=== PATIENT | female | born 1995 | race Caucasian/White ===

== ENCOUNTER 2016-10-09 17:26 | Emergency (ER) | payer OTHER ==
[~2016-10-09] VITALS: Ht 177.8 cm; Wt 105.0 kg
[~2016-10-09 17:26] MED LIST: ACET-1311 PO
[2016-10-09 17:28] VITALS: TEMP 36.7; Ht 177.8 cm; Wt 105.0 kg
--- NOTE | 2016-10-09 17:42 | EMERGENCY ROOM VISIT NOTE ---
History Report prepared by Daniela: Emelia Centeno Under the Supervision of: Dr. Alfredito Lawrence M.D. First contact with patient: 17:31 Chief Complaint: ABDOMINAL PAIN Stated Complaint: RIGHT SIDE PAIN - NAUSEA Nursing Triage Summary: pt here with right sided abd pains x 3 years, some nausea. History of Present Illness The patient is a 21 year old female who presents to the Emergency Room with complaints of persistent right upper quadrant abdominal pain that began two years ago, but worsened over the last few months. She currently rates her discomfort as a 10/10 in severity. The patient states that she has been evaluated by several doctors for her abdominal pain, but denies any diagnosis. The patient denies any past surgical history and denies any work up related to her gallbladder. She notes worsened pain with eating. The patient associates nausea with her symptoms and additionally notes that she vomited yesterday. She denies any shortness of breath, vaginal discharge, urinary symptoms, or chance of . The patient reports normal bowel movements. She states that she is currently on her menstrual cycle. The patient reports a recent fever and diaphoresis. Source of History: patient Onset: two years ago, worsened last few months Position: abdomen (RUQ) Symptom Intensity: 10/10 Timing: worsening, other (persistent) Associated Symptoms: + fevers, + nausea, + vomiting, No SOB, No urinary symptoms Review of Systems See HPI for pertinent positives & negatives. A total of 10 systems reviewed and were otherwise negative. Past Medical & Surgical Medical Problems: (1) Bronchitis Family History Cancer Hypertension Seizures Social History Smoking Status: Never Smoker Smokeless Tobacco Use: No Alcohol Use: none Marital Status: single Housing Status: lives with family Occupation Status: student Current/Historical Medications Scheduled Cephalexin Monohydrate (Keflex), 500 MG PO TID Metformin Hcl (Glucophage), 500 MG PO DAILY Pantoprazole (Protonix), 20 MG PO DAILY Allergies Coded Allergies: Erythromycin (Unverified Allergy, Severe, HIVES, 10/09/16) Uncoded Allergies: E-MYCIN (Allergy, Unknown, 10/23/02) Physical Exam Vital Signs Date Time Temp Pulse Resp B/P (MAP) Pulse Ox O2 Delivery O2 Flow Rate FiO2 10/09/16 19:51 71 18 136/50 99 Room Air 10/09/16 18:42 78 18 136/50 99 Room Air 10/09/16 17:28 36.7 92 16 136/83 99 Room Air Physical Exam GENERAL: Patient is in no acute distress. HEENT: No acute trauma, normocephalic atraumatic, mucous membranes moist, no nasal congestion, no scleral icterus. NECK: No stridor, no adenopathy, no meningismus, trachea is midline. LUNGS: Clear to auscultation bilaterally, no wheeze, no rhonchi, breath sounds equal. HEART: Without murmurs gallops or rubs, regular rate and rhythm. ABDOMEN: Mildly tender in right upper quadrant. Soft, bowel sounds positive, no hernias, no peritonitis. EXTREMITIES: No cyanosis or edema, full range of motion of all the joints without pain or difficulty, no signs for acute trauma. NEUROLOGIC: Oriented x 3, no acute motor or sensory deficits, no focal weakness. SKIN: No rash, no jaundice, no diaphoresis. Medical Decision & Procedures ER Provider Diagnostic Interpretation: Radiology results as stated below per my review and radiologist interpretation: CHEST ONE VIEW PORTABLE CLINICAL HISTORY: Right-sided pain. Abdominal pain. Nausea. COMPARISON STUDY: No previous studies for comparison. FINDINGS: The cardiac and mediastinal contours are normal. There is no evidence of focal pulmonary consolidation. There is no evidence of failure. No pleural effusions are visualized.[ IMPRESSION: No active disease in the chest. Electronically signed by: Roland Barron M.D. 10/09/2016 5:59 PM Dictated Date/Time: 10/09/2016 5:59 PM BILIARY ULTRASOUND CLINICAL HISTORY: Right upper quadrant abdominal pain COMPARISON STUDY: No previous studies for comparison. FINDINGS: The study is limited from a technical standpoint. The liver is of slightly increased echogenicity, finding suggesting hepatic steatosis. No focal hepatic masses are visualized. The gallbladder appears sonographically normal. There is no ductal dilatation. The common bile duct measures 4 mm. The pancreas appears normal as visualized. There is no right-sided hydronephrosis. IMPRESSION: Possible hepatic steatosis. Ultrasonographically normal gallbladder. No evidence of ductal dilatation. Electronically signed by: Roland Barron M.D. 10/09/2016 7:04 PM Dictated Date/Time: 10/09/2016 7:03 PM Laboratory Results 10/09/16 17:45 Red Blood Count 5.09, Mean Corpuscular Volume 74.9, Mean Corpuscular Hemoglobin 23.6, Mean Corpuscular Hemoglobin Concent 31.5, Mean Platelet Volume 10.3, Neutrophils (%) (Auto) 77.8, Lymphocytes (%) (Auto) 14.2, Monocytes (%) (Auto) 5.8, Eosinophils (%) (Auto) 1.6, Basophils (%) (Auto) 0.4, Neutrophils # (Auto) 8.88, Lymphocytes # (Auto) 1.62, Monocytes # (Auto) 0.66, Eosinophils # (Auto) 0.18, Basophils # (Auto) 0.04 10/09/16 17:45 Test 10/09/16 17:45 10/09/16 18:00 White Blood Count 11.40 K/uL (4.8-10.8) Red Blood Count 5.09 M/uL (4.2-5.4) Hemoglobin 12.0 g/dL (12.0-16.0) Hematocrit 38.1 % (37-47) Mean Corpuscular Volume 74.9 fL (80-100) Mean Corpuscular Hemoglobin 23.6 pg (25-34) Mean Corpuscular Hemoglobin Concent 31.5 g/dl (32-36) Platelet Count 374 K/uL (130-400) Mean Platelet Volume 10.3 fL (7.4-10.4) Neutrophils (%) (Auto) 77.8 % Lymphocytes (%) (Auto) 14.2 % Monocytes (%) (Auto) 5.8 % Eosinophils (%) (Auto) 1.6 % Basophils (%) (Auto) 0.4 % Neutrophils # (Auto) 8.88 K/uL (1.4-6.5) Lymphocytes # (Auto) 1.62 K/uL (1.2-3.4) Monocytes # (Auto) 0.66 K/uL (0.11-0.59) Eosinophils # (Auto) 0.18 K/uL (0-0.5) Basophils # (Auto) 0.04 K/uL (0-0.2) RDW Standard Deviation 40.9 fL (36.4-46.3) RDW Coefficient of Variation 15.0 % (11.5-14.5) Immature Granulocyte % (Auto) 0.2 % Immature Granulocyte # (Auto) 0.02 K/uL (0.00-0.02) Red Blood Cell Morphology Unremarkable Anion Gap 7.0 mmol/L (3-11) Est Creatinine Clear Calc Drug Dose 188.2 ml/min Estimated GFR () 148.1 Estimated GFR (Non- 127.8 BUN/Creatinine Ratio 9.8 (10-20) Calcium Level 9.3 mg/dl (8.5-10.1) Total Bilirubin 0.3 mg/dl (0.2-1) Aspartate Amino Transf (AST/SGOT) 17 U/L (15-37) Alanine Aminotransferase (ALT/SGPT) 28 U/L (12-78) Alkaline Phosphatase 82 U/L (45-117) Total Protein 7.6 gm/dl (6.4-8.2) Albumin 3.6 gm/dl (3.4-5.0) Globulin 4.0 gm/dl (2.5-4.0) Albumin/Globulin Ratio 0.9 (0.9-2) Lipase 95 U/L (73-393) Urine Color ORANGE Urine Appearance CLOUDY (CLEAR) Urine pH 6.5 (4.5-7.5) Urine Specific Sherwood 1.023 (1.000-1.030) Urine Protein 1+ (NEG) Urine Glucose (UA) NEG (NEG) Urine Ketones NEG (NEG) Urine Occult Blood 3+ (NEG) Urine Nitrite NEG (NEG) Urine Bilirubin NEG (NEG) Urine Urobilinogen NEG (NEG) Urine Leukocyte Esterase MODERATE (NEG) Urine WBC (Auto) >30 /hpf (0-5) Urine RBC (Auto) >30 /hpf (0-4) Urine Hyaline Casts (Auto) 10-30 /lpf (0-5) Urine Epithelial Cells (Auto) >30 /lpf (0-5) Urine Bacteria (Auto) 1+ (NEG) Urine Test NEG (NEG) Laboratory results reviewed by me. Medications Administered Medications (Trade) Dose Ordered Sig/Ricco Route Start Time Stop Time Status Last Admin Dose Admin Cephalexin Monohydrate (Keflex 500MG Home Pack) 1 homepack NOW ONCE PO 10/09/16 19:15 10/09/16 19:16 DC 10/09/16 20:16 1 HOMEPACK Pantoprazole Sodium (Protonix Tab) 40 mg NOW STAT PO 10/09/16 19:17 10/09/16 19:18 DC 10/09/16 19:51 40 MG ED Course 1731: The patient was evaluated in room C8. A complete history and physical exam was performed. 1914: Ordered Cephalexin Monohydrate 1 homepack PO. 1916: Ordered Protonix 40 mg PO. 1921: I reevaluated the patient and she is resting comfortably. I discussed the exam findings with her and I discussed the treatment plan. She verbalized complete understanding and agreement. She is ready to go home. Medical Decision The patient is a 21 year old female who presents to the ED with complaints of right upper quadrant abdominal pain. Differential diagnoses considered include biliary colic, pancreatitis, pneumonia, reflux, ulcer, musculoskeletal pain, UTI , . There is a very mild leukocytosis, this could be consistent with infection. No concerning anemia. No significant electrolyte abnormality, kidney failure, hepatitis or pancreatitis. Urine testing is negative. Gallbladder ultrasound does not show evidence for gallstones or acute cholecystitis. Chest x-ray shows no free air or pneumonia, there was no mediastinal widening. Urinalysis shows possible infection versus contamination, urine culture is pending. Given the discomfort in the right side of the abdomen, given the leukocytosis and the potential dirty urine, I think treating the patient with antibiotics would be indicated. She was given oral Keflex. This will be continued for 10 days. The patient also was given oral Protonix for the possibility of gastritis. This will be continued for 1 month. If worsening, she can return. Medication Reconciliation: I attest that I have personally reviewed the patient' s current medication list. Blood Pressure Screening: Patient was found to have normal blood pressure on screening and does not require follow-up. Impression Primary Impression: Right sided abdominal pain Additional Impression: UTI (urinary tract infection) Scribe Attestation The scribe's documentation has been prepared under my direction and personally reviewed by me in its entirety. I confirm that the note above accurately reflects all work, treatment, procedures, and medical decision making performed by me. Departure Information Dispostion Home / Self-Care Prescriptions Cephalexin Monohydrate (Keflex) 500 Mg Cap 500 MG PO TID for 10 Days, #30 CAP Prov: Alfredito Lawrence M.D. 10/09/16 Pantoprazole (Protonix) 20 Mg Tab 20 MG PO DAILY, #30 TAB Prov: Alfredito Lawrence M.D. 10/09/16 Referrals No Doctor, Assigned (PCP) Forms HOME CARE DOCUMENTATION FORM, IMPORTANT VISIT INFORMATION Patient Instructions My [facility] Additional Instructions protonix daily for 1 month for the stomach use keflex 3 times per day for 10 days follow with yudi ulloa for a recheck return for fever, vomiting or worsening symptoms lab testing and imaging was ok today Problem Qualifiers
[2016-10-09] MEDS ORDERED: GLC/500 PO (17:53)
[2016-10-09 17:54] LABS: BASO % 0.4 %; BASO ABS # 0.04 K/uL (0-0.2); EOS % 1.6 %; HEMATOCRIT 38.1 % (37-47); IG% 0.2 %; LYMPH % 14.2 %; LYMPH ABS # 1.62 K/uL (1.2-3.4); MEAN CELL VOLUME 74.9 fL (80-100); MEAN CORPUSCULAR HEMOGLOBIN 23.6 pg (25-34); MEAN CORPUSCULAR HGB CONC 31.5 g/dl (32-36); MEAN PLATELET VOLUME 10.3 fL (7.4-10.4); MONO % 5.8 %; NEUT % 77.8 %; PLATELET COUNT 374 K/uL (130-400); RED BLOOD COUNT 5.09 M/uL (4.2-5.4)
--- NOTE | 2016-10-09 18:00 | DIAGNOSTIC IMAGING REPORT ---
CHEST ONE VIEW PORTABLE CLINICAL HISTORY: Right-sided pain. Abdominal pain. Nausea. COMPARISON STUDY: No previous studies for comparison. FINDINGS: The cardiac and mediastinal contours are normal. There is no evidence of focal pulmonary consolidation. There is no evidence of failure. No pleural effusions are visualized.[ IMPRESSION: No active disease in the chest. Electronically signed by: Roland Barron M.D. 10/09/2016 5:59 PM Dictated Date/Time: 10/09/2016 5:59 PM
[2016-10-09 18:15] LABS: BUN/CREATININE RATIO 9.8 (10-20); CALCIUM 9.3 mg/dl (8.5-10.1); CREATININE 0.61 mg/dl (0.60-1.20); POTASSIUM 3.7 mmol/L (3.5-5.1)
[2016-10-09 18:17] LABS: COMPLETE YES
[2016-10-09 18:18] LABS: ALB/GLOB RATIO 0.9 (0.9-2)
[2016-10-09 18:25] LABS: URINE APPEARANCE CLOUDY (CLEAR); URINE BILIRUBIN NEG (NEG); URINE COLOR ORANGE; URINE EPITHELIAL CELL AUTO >30 /lpf (0-5); URINE NITRITE NEG (NEG); URINE PH 6.5 (4.5-7.5); URINE SPECIFIC GRAVITY 1.023 (1.000-1.030); UROBILINOGEN NEG (NEG); ZZUR CULT IF INDIC CLEAN CATCH YES
[2016-10-09 18:26] LABS: MANUAL MICROSCOPIC REQUIRED? NO; REVIEW REQ? NO
--- NOTE | 2016-10-09 19:05 | DIAGNOSTIC IMAGING REPORT ---
BILIARY ULTRASOUND CLINICAL HISTORY: Right upper quadrant abdominal pain COMPARISON STUDY: No previous studies for comparison. FINDINGS: The study is limited from a technical standpoint. The liver is of slightly increased echogenicity, finding suggesting hepatic steatosis. No focal hepatic masses are visualized. The gallbladder appears sonographically normal. There is no ductal dilatation. The common bile duct measures 4 mm. The pancreas appears normal as visualized. There is no right-sided hydronephrosis. IMPRESSION: Possible hepatic steatosis. Ultrasonographically normal gallbladder. No evidence of ductal dilatation. Electronically signed by: Roland Barron M.D. 10/09/2016 7:04 PM Dictated Date/Time: 10/09/2016 7:03 PM
[2016-10-09] MEDS ORDERED: CEPHALEXIN 500MG HOME PACK 1 EA BTL PO ONE (19:15)
[2016-10-09] MEDS ORDERED: PANTOprazole SOD 40 MG TAB PO STA (19:17)
[2016-10-09 19:51] VITALS: BP 136/50; PULSE 71; O2SAT 99
[2016-10-09] MEDS ORDERED: PRT/20 PO (19:54)
[2016-10-09] MEDS ORDERED: CEPH500C PO (19:54)
== END 2016-10-09 20:19 | disposition home or self-care (01) ==
LOC: C.EDB 17:27 → C.EDC 20:19
DX: R10.11 Right upper quadrant pain (principal); N39.0 Urinary tract infection, site not specified; Z80.9 Family history of malignant neoplasm, unspecified; Z82.49 Family history of ischemic heart disease and other diseases of the circulatory system; Z79.899 Other long term (current) drug therapy

== ENCOUNTER 2017-04-02 15:09 | Emergency (ER) | payer OTHER ==
[~2017-04-02] VITALS: Ht 177.8 cm; Wt 105.1 kg
[~2017-04-02 15:09] MED LIST changes: -ACET-1311 PO; +GLC/500 PO; +PRT/20 PO
[2017-04-02 15:30] VITALS: TEMP 36.7; Ht 177.8 cm; Wt 105.1 kg
--- NOTE | 2017-04-02 16:16 | EMERGENCY ROOM VISIT NOTE ---
History Report prepared by Daniela: Imtiaz Nazario Under the Supervision of: Dr. Scooter Monroy M.D. First contact with patient: 15:37 Chief Complaint: ANXIETY Stated Complaint: DIZZINESS, NAUSEA, BREATHING TROUBLE, ANXIETY History of Present Illness The patient is a 22 year old female who presents to the Emergency Room for a mental health evaluation for her worsening anxiety starting yesterday. The patient states that she has a history of depression and anxiety, and she states that during her panic attacks she gets short of breath, and she currently feels short of breath and dizzy since yesterday. She additionally states that she has been having suicidal ideations yesterday by stabbing herself, though she does not have those thoughts today. She states that she listened to music yesterday which helped her ideations. The patient was put on Ativan last night, though she was recently taken off of it. She notes that she sometimes cries, and she is not sleeping very well. The patient denies any weigh loss, weight gain, alcohol use, drug use, thyroid problems, leg pain, leg swelling, abdominal pain , homicidal ideation, and hallucinations. The patient states that she has not seen a psychiatrist yet, and she has a seizures years ago. Source of History: patient Onset: yesterday Position: other (global) Quality: other (anxiety) Timing: worsening Note: Associated symptoms: Suicidal ideation Review of Systems See HPI for pertinent positives & negatives. A total of 10 systems reviewed and were otherwise negative. Past Medical & Surgical Medical Problems: (1) Bronchitis Old medical records were reviewed. Nurse's notes were reviewed and I agree with. Family History Cancer Hypertension Seizures Social History Smoking Status: Never Smoker Alcohol Use: none Marital Status: single Housing Status: lives with family Occupation Status: student Current/Historical Medications No Active Prescriptions or Reported Meds Allergies Coded Allergies: Erythromycin (Unverified Allergy, Severe, HIVES, 10/09/16) Penicillins (Verified Allergy, Intermediate, Hives, 04/02/17) Physical Exam Vital Signs Date Time Temp Pulse Resp B/P (MAP) Pulse Ox O2 Delivery O2 Flow Rate FiO2 04/02/17 17:22 86 17 129/75 99 Room Air 04/02/17 15:30 36.7 87 20 142/84 100 Room Air Physical Exam General: Non-ill appearing young female in no acute distress. HEENT: Normal cephalic atraumatic. Pupils are equal round and reactive to light. Extraocular movements are intact. Oropharynx is pink with moist mucous membranes. No swelling of the mouth lips or tongue. Neck: Supple with a midline trachea. No meningeal signs or stiffness, no JVD or bruits. No Stridor. Chest: Clear to auscultation bilaterally. No wheezes or rhonchi. No increased work of breathing. Heart: regular rate and rhythm. Abdomen: Soft nontender, nondistended without rebound guarding or rigidity. Extremities: No cyanosis clubbing or edema. No calf tenderness or assymetry Spine/Back. Non tender to palpation. No CVA tenderness Skin: Good turgor without rashes. Neurologic exam: Cranial nerves two through 12 are intact. Motor and sensation are intact and symmetrical throughout. Psych: Denies any current suicidal ideation. She complains of feeling anxious. Medical Decision & Procedures ER Provider Diagnostic Interpretation: Radiology results as stated below per my review and radiologist interpretation: CHEST ONE VIEW PORTABLE CLINICAL HISTORY: CHEST PAIN dyspnea COMPARISON STUDY: 10/09/2016 FINDINGS: The bones soft tissues and hemidiaphragms are normal. The cardiomediastinal silhouette is normal. The lungs are clear. The pulmonary vasculature is normal. IMPRESSION: Negative chest. The above report was generated using voice recognition software. It may contain grammatical, syntax or spelling errors. Electronically signed by: Sohan Watts M.D. 04/02/2017 4:14 PM Dictated Date/Time: 04/02/2017 4:13 PM Laboratory Results 04/02/17 16:13 Red Blood Count 4.79, Mean Corpuscular Volume 74.1, Mean Corpuscular Hemoglobin 23.4, Mean Corpuscular Hemoglobin Concent 31.5, Mean Platelet Volume 10.5, Neutrophils (%) (Auto) 64.2, Lymphocytes (%) (Auto) 24.0, Monocytes (%) (Auto) 8.7, Eosinophils (%) (Auto) 2.5, Basophils (%) (Auto) 0.4, Neutrophils # (Auto) 6.30, Lymphocytes # (Auto) 2.36, Monocytes # (Auto) 0.85, Eosinophils # (Auto) 0.25, Basophils # (Auto) 0.04 04/02/17 16:13 Test 04/02/17 15:35 04/02/17 16:13 Urine Opiates Screen NEG (NEG) Urine Methadone, Qualitative NEG (NEG) Urine Barbiturates NEG (NEG) Urine Phencyclidine (PCP) Level NEG (NEG) Ur Amphetamine/Methamphetamine NEG (NEG) MDMA (Ecstasy) Screen NEG (NEG) Urine Benzodiazepines Screen NEG (NEG) Urine Cocaine Metabolite NEG (NEG) Urine Marijuana (THC) NEG (NEG) White Blood Count 9.82 K/uL (4.8-10.8) Red Blood Count 4.79 M/uL (4.2-5.4) Hemoglobin 11.2 g/dL (12.0-16.0) Hematocrit 35.5 % (37-47) Mean Corpuscular Volume 74.1 fL (80-100) Mean Corpuscular Hemoglobin 23.4 pg (25-34) Mean Corpuscular Hemoglobin Concent 31.5 g/dl (32-36) Platelet Count 357 K/uL (130-400) Mean Platelet Volume 10.5 fL (7.4-10.4) Neutrophils (%) (Auto) 64.2 % Lymphocytes (%) (Auto) 24.0 % Monocytes (%) (Auto) 8.7 % Eosinophils (%) (Auto) 2.5 % Basophils (%) (Auto) 0.4 % Neutrophils # (Auto) 6.30 K/uL (1.4-6.5) Lymphocytes # (Auto) 2.36 K/uL (1.2-3.4) Monocytes # (Auto) 0.85 K/uL (0.11-0.59) Eosinophils # (Auto) 0.25 K/uL (0-0.5) Basophils # (Auto) 0.04 K/uL (0-0.2) RDW Standard Deviation 41.5 fL (36.4-46.3) RDW Coefficient of Variation 15.5 % (11.5-14.5) Immature Granulocyte % (Auto) 0.2 % Immature Granulocyte # (Auto) 0.02 K/uL (0.00-0.02) Anion Gap 9.0 mmol/L (3-11) Est Creatinine Clear Calc Drug Dose 183.6 ml/min Estimated GFR () 146.3 Estimated GFR (Non- 126.2 BUN/Creatinine Ratio 10.3 (10-20) Calcium Level 9.3 mg/dl (8.5-10.1) Total Bilirubin 0.2 mg/dl (0.2-1) Direct Bilirubin < 0.1 mg/dl (0-0.2) Aspartate Amino Transf (AST/SGOT) 19 U/L (15-37) Alanine Aminotransferase (ALT/SGPT) 29 U/L (12-78) Alkaline Phosphatase 79 U/L (45-117) Total Protein 7.5 gm/dl (6.4-8.2) Albumin 3.6 gm/dl (3.4-5.0) Lipase 92 U/L (73-393) Thyroid Stimulating Hormone (TSH) 2.540 uIu/ml (0.300-4.500) Human Chorionic Gonadotropin, Qual NEG (NEG) Salicylates Level < 1.7 mg/dl (2.8-20) Acetaminophen Level < 2 ug/ml (10-30) Ethyl Alcohol mg/dL < 3.0 mg/dl (0-3) Laboratory studies as stated above per my review. ECG Indication: SOB/dyspnea Rate (beats per minute): 74 Rhythm: normal sinus Findings: no acute ischemic change, other (Shortened VT interval) Comparison ECG Date: no prior available ED Course 1537: Past medical records reviewed. The patient was evaluated in room A8, and a complete history and physical examination were performed. 1716: I reevaluated the patient, and she was resting comfortably 1752: Upon reevaluation, the patient is doing well. I discussed the results and treatment plan with her. She verbalized agreement of the treatment plan. The patient was discharged home. Medical Decision Differentials include, but are not limited to; anxiety, depression, toxicologic process, electrolyte or metabolic abnormality. This patient comes in as described above. She was placed in room A5. She is here for treatment and evaluation of anxiety. She may have had some suicidal ideations yesterday. Denies any at present. She looks well on exam and she says that when she gets anxious she does feel short of breath. In light of this , a chest x-ray was obtained which was unremarkable. Multiple blood tests was obtained as well as an EKG. She has nothing to suggest acute electrolyte or metabolic abnormalities. She has nothing to suggest acute cardiac toxicologic or infectious process. She was medically cleared. At present, she is asymptomatic and they feel she is safe to go home and we are going to arrange her to get in with a primary care physician in the next couple days for possible anxiety medicine. The patient and her grandmother, who she lives with , are very agreeable and with this. Incidentally on her EKG, her VT interval is short and it's possible she could have some preexcitation and this could be another reason to get her to get close follow-up with her regular doctor. It's possible that she could have a pre-excitatory syndrome such as WPW that's causing her to feel anxious. She's had no syncope or chest pain or palpitations. I informed her of these findings as well. She should return to the ER if: worsening of symptoms, thoughts of hurting herself or others, passing out, rapid heart rate, any new problems or concerns. The patient and her grandmother were happy with the plan and she was discharged to home. Medication Reconcilliation Current Medication List: was personally reviewed by me Blood Pressure Screening Patient's blood pressure: Elevated blood pressure Blood pressure disposition: Elevated BP felt to be situational Impression Primary Impression: Anxiety Additional Impressions: Depression Shortened VT interval Scribe Attestation The scribe's documentation has been prepared under my direction and personally reviewed by me in its entirety. I confirm that the note above accurately reflects all work, treatment, procedures, and medical decision making performed by me. Departure Information Dispostion Home / Self-Care Prescriptions No Active Prescriptions or Reported Meds Referrals Emily Garg D.O. (PCP) Forms HOME CARE DOCUMENTATION FORM, IMPORTANT VISIT INFORMATION Patient Instructions My [facility] Additional Instructions Rest. Return if: Worsening of symptoms, chest pain, shortness of breath, thoughts of hurting herself or others, fever or chills, any new problems or concerns Follow-up with your doctor this week for recheck. You may need further workup to rule out a fast heart rate or electrical heart problem. Problem Qualifiers
[2017-04-02 16:37] LABS: BASO % 0.4 %; BASO ABS # 0.04 K/uL (0-0.2); COMPLETE YES; EOS % 2.5 %; HEMATOCRIT 35.5 % (37-47); IG% 0.2 %; LYMPH ABS # 2.36 K/uL (1.2-3.4); MEAN CELL VOLUME 74.1 fL (80-100); MEAN CORPUSCULAR HEMOGLOBIN 23.4 pg (25-34); MEAN CORPUSCULAR HGB CONC 31.5 g/dl (32-36); MEAN PLATELET VOLUME 10.5 fL (7.4-10.4); MONO % 8.7 %; NEUT % 64.2 %; PLATELET COUNT 357 K/uL (130-400); RED BLOOD COUNT 4.79 M/uL (4.2-5.4); WHITE BLOOD COUNT 9.82 K/uL (4.8-10.8)
[2017-04-02 16:45] LABS: BENZODIAZEPINE, URINE NEG (NEG); COCAINE,URINE NEG (NEG); PHENCYCLIDINE, URINE NEG (NEG)
[2017-04-02 16:55] LABS: ALT/SGPT 29 U/L (12-78); BLOOD UREA NITROGEN 6 mg/dl (7-18); BUN/CREATININE RATIO 10.3 (10-20); CALCIUM 9.3 mg/dl (8.5-10.1); CARBON DIOXIDE 25 mmol/L (21-32); CHLORIDE 105 mmol/L (98-107); CREATININE 0.62 mg/dl (0.60-1.20); GLUCOSE 85 mg/dl (70-99); POTASSIUM 3.6 mmol/L (3.5-5.1); SODIUM 139 mmol/L (136-145)
[2017-04-02 17:03] LABS: PREG INTERNAL NEGATIVE QC NEG CLEAR BACKGROUND; PREG INTERNAL POSITIVE QC POS CONTROL LINE
[2017-04-02 17:06] LABS: ACETAMINOPHEN < 2 ug/ml (10-30); ALKALINE PHOSPHATASE 79 U/L (45-117); AST/SGOT 19 U/L (15-37)
[2017-04-02 17:22] VITALS: BP 129/75; PULSE 86; O2SAT 99
== END 2017-04-02 17:50 | disposition home or self-care (01) ==
LOC: C.EDB 15:10 → C.EDA 17:50
DX: F41.9 Anxiety disorder, unspecified (principal); F32.9 Major depressive disorder, single episode, unspecified; R94.31 Abnormal electrocardiogram [ECG] [EKG]; Z80.9 Family history of malignant neoplasm, unspecified; Z82.49 Family history of ischemic heart disease and other diseases of the circulatory system